=== PATIENT | male | born 1990 | race Two or more races ===

== ENCOUNTER 2021-10-01 00:42 | Emergency (ER) | payer MEDICAID ==
[~2021-10-01] VITALS: Ht 180.3 cm; Wt 136.4 kg
[2021-10-01 01:51] LABS: COVID AG,FIA SOURCE NASAL SWAB
[2021-10-01 02:07] VITALS: BP 135/96
[2021-10-01] MEDS ORDERED: CIPR7.5D AU (02:44)
== END 2021-10-01 03:01 | disposition home or self-care (01) ==
LOC: EMS 00:49
DX: H60.92 Unspecified otitis externa, left ear (principal); F12.90 Cannabis use, unspecified, uncomplicated; Z20.822 Contact with and (suspected) exposure to COVID-19
CPT/HCPCS: 99283